=== PATIENT | female | born 1975 | race African-American/Black ===

== ENCOUNTER → 2020-05-06 | Outpatient (CLI) | payer OTHER ==
--- NOTE | 2020-05-07 12:43 | KCIC ---
Bilateral diagnostic digital mammograms: Reason for examination: Right breast pain 3 months ago that lasted 2 weeks. No current symptoms. Comparison is made to previous studies dated between 08/10/2015 and 08/13/2014. Interpretation was made with the benefit of CAD. The skin and nipples show no abnormalities. No abnormal axillary lymph nodes are seen. The breast parenchyma is heterogeneously dense. (Breast density: Category C.) There continues to be a small circumscribed nodule medially in the right breast at approximately the 3:00 position 6 cm from the nipple which is stable. There is also some nodularity posterior laterally in the right breast approximately 12 cm from the nipple which is stable. There are no new dominant masses, suspicious calcifications or architectural distortion. Impression: Stable parenchymal densities in the right breast. No evidence of malignancy. Ultrasound to follow. Your patient's mammogram demonstrates that she has dense breast tissue (breast density category C or D), which could hide abnormalities, and if she has other risk factors for breast cancer that have been identified, she might benefit from supplemental screening tests that may be suggested by you as her ordering physician. Dense breast tissue, in and of itself, is a relatively common condition. Therefore, this information is not provided to cause undue concern, but rather to raise your awareness and to promote discussion with your patient regarding the presence of other risk factors, in addition to dense breast tissue. Your patient's mammography results will be sent to her. BI-RAD Category 0: Incomplete. Needs additional imaging evaluation. Right breast ultrasound: Comparison is made to previous studies dated 08/10/2015 and 02/19/2015. Right whole breast ultrasound including evaluation of all 4 quadrants and the retroareolar and axillary regions of the right breast was performed. At the 12:30 position 7 cm from the nipple, there is a 9.3 mm circumscribed nodule in parallel orientation which may represent a complicated cyst or small fibroadenoma. In the 2:00 position 5 cm from the nipple, there is a small 4.7 mm hypoechoic fibrocystic type lesion. In the 9:00 position 7 cm from the nipple, there continues to be a small hypoechoic lesion measuring 7.6 mm in greatest dimension which likely represents a fibroadenoma. No suspicious-appearing nodules are seen. No abnormal appearing lymph nodes are seen in the axilla. IMPRESSION: Small benign-appearing nodules in the right breast consistent with complicated cysts or fibroadenoma. No suspicious-appearing nodules are seen. Recommend 6 month follow-up with ultrasound. BI-RADS Category 3: Probably Benign. "Our facility is accredited by the [employer] Mammography [employer]." This patient's information has been entered into a reminder system for the patient to be notified with the results of her examination and a target date for the next mammogram. Electronically signed by: Grace Tipton MD (05/07/2020 12:40 PM) [id number]
== END | disposition home or self-care (01) ==
LOC: KCIC MAMMO 09:27
PROVIDERS: ATTEND Family Medicine
DX: N63.14 Unspecified lump in the right breast, lower inner quadrant (principal); R92.2 Inconclusive mammogram
CPT/HCPCS: 76641; 77066